=== PATIENT | female | born 1990 | race Caucasian/White ===

== ENCOUNTER 2021-11-03 15:51 | Emergency (ER) | payer SELFPAY ==
[2021-11-03 16:02] VITALS: BP 151/90; PULSE 124; RESP 12; TEMP 39.2; O2SAT 98; BMI 22.4
--- NOTE | 2021-11-03 16:17 | ECG_ITS ---
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 Measurements Intervals [place] Rate: 116 P: 61 [place]: 122 QRS: 69 QRSD: 90 T: 52 QT: 299 QTc: 417 Interpretive Statements SINUS TACHYCARDIA NONSPECIFIC T-WAVE ABNORMALITY ABNORMAL RHYTHM ECG No previous ECG available for comparison Electronically Signed On 11-04-2021 5:47:31 CDT by Jeanna De La Garza M.D. [id number]
--- NOTE | 2021-11-03 16:17 | XRR_ITS ---
PROCEDURE INFORMATION: Exam: XR Chest Exam date and time: 11/03/2021 4:28 PM Age: 30 years old Clinical indication: Fever TECHNIQUE: Imaging protocol: Radiologic exam of the chest. Views: 1 view. COMPARISON: No relevant prior studies available. FINDINGS: Lungs: Unremarkable. No consolidation. Pleural spaces: Unremarkable. No pleural effusion. No pneumothorax. Heart/Mediastinum: Unremarkable. No cardiomegaly. Bones/joints: Unremarkable. XR/XR chest 1V portable [id number] IMPRESSION: No acute findings.
--- NOTE | 2021-11-03 16:25 | W.ED.FEVER ---
Documented by User: MATTHEW Cardona 11/04/21 14:49 HPI - Fever General: Chief Complaint: Fever Stated Complaint: 103F fever/lethargic Time Seen by Provider: 11/03/21 16:11 History of Present Illness: Patient is a 30-year-old female comes to the ED with fever, nausea and diarrhea. Symptoms started approximately 2 days ago. She took some Tylenol early this morning. She denies any vomiting and has been trying to drink plenty of fluids to stay hydrated. She has only had 3 episodes of diarrhea for the past 2 days. Denies any abdominal pain, chest pain or shortness of breath. She does endorse having some right rib/lateral chest wall pain that started over a week ago after she was lifting a pallet at work. Associated symptoms: Reports diarrhea and nausea; Deny abdominal pain, flank pain, chills, chest pain, dysuria, headache(s), nasal congestion or vomiting Review of Systems Const: Reports: fever(s); Denies: chills or fatigue Eyes: Denies: change in vision or eye discomfort ENMT: Denies: throat pain, odynophagia, nasal discharge or nasal congestion Card: Denies: chest pain, palpitations, edema, swelling of feet/ankles, dyspnea on exertion or orthopnea Resp: Denies: dyspnea, productive cough or non-productive cough GI: Reports: nausea and diarrhea; Denies: abdominal pain, vomiting, constipation or hematochezia : Denies: flank pain, dysuria or hematuria Musc: Denies: neck pain, back pain or extremity swelling Skin/Breast: Denies: rash or new lesions Neuro: Denies: headache(s), numbness in extremities or weakness in extremities PFS ED PFSH: Medical History (Updated 11/04/21 @ 14:48 by MATTHEW Cardona) No pertinent family history Surgical History (Updated 11/04/21 @ 14:48 by MATTHEW Cardona) No pertinent past surgical history Physical Exam Const: COMMON NORMALS: patient oriented x3 and alert GENERAL APPEARANCE: cooperative HENMT: COMMON NORMALS: normocephalic HEAD & SCALP: normocephalic MOUTH: Normal oral and palatal mucosa present THROAT: uvula midline and abnormal tonsil bilateral erythema and hypertrophy 2+ Eye: COMMON NORMALS: Equal, round and reactive pupils present and conjunctivae normal CONJUNCTIVA: Yes conjunctivae normal PUPIL: Yes Equal, round and reactive pupils present Neck/C-Spine: COMMON NORMALS: supple GENERAL: Yes normal visual inspection Resp: COMMON NORMALS: normal respiratory effort, No retractions, No use of accessory muscles and clear to auscultation bilaterally AUSCULTATION: clear to auscultation bilaterally Cardio: COMMON NORMALS: regular rhythm, S1 normal heart sound present, S2 normal heart sound present, No gallops present (Cardio), No clicks present (Cardio), No murmurs present (Cardio) and Peripheral pulses 2+ throughout RATE: tachycardic RHYTHM: regular rhythm HEART SOUNDS: S1 normal heart sound present and S2 normal heart sound present PERIPHERAL PULSES: Peripheral pulses 2+ throughout GI: COMMON NORMALS: Normal to inspection, nondistended, normoactive bowel sounds present, Soft to palpation, non-tender and no masses PALPATION: Yes Soft to palpation : COMMON NORMALS: Yes no CVA tenderness BLADDER/KIDNEY EXAM: Yes no CVA tenderness Back/Pelvis: COMMON NORMALS: no CVA tenderness Extremity: COMMON NORMALS: normal to inspection Neuro: COMMON NORMALS: patient oriented x3 and moves all extremities SENSORIUM/ORIENTATION: Yes alert Skin: GENERAL SKIN EXAM: dry skin Course Vital Signs: Vital signs: Vital Signs Temperature 102.6 F H 11/03/21 16:02 Pulse Rate 112 H 11/03/21 18:35 Respiratory Rate 15 11/03/21 18:35 Blood Pressure 144/79 11/03/21 18:35 Pulse Oximetry 96 11/03/21 18:35 MDM - Fever Lab Data I reviewed the patient's lab results. : 11/03/21 16:38 11/03/21 16:38 Radiology Impressions Chest X-Ray 11/03/21 16:17 IMPRESSION: No acute findings. Laboratory Results WBC 11.9 10^3/uL (4.0-10.0) H 11/03/21 16:38 RBC 4.17 10^6/uL (4.1-5.3) 11/03/21 16:38 Hgb 12.2 g/dL (11.5-15.3) 11/03/21 16:38 Hct 36.8 % (37.0-47.0) L 11/03/21 16:38 MCV 88.2 fl (81-99) 11/03/21 16:38 MCH 29.3 pg (28.0-34.0) 11/03/21 16:38 MCHC 33.2 g/dL (30.0-36.0) 11/03/21 16:38 RDW 12.1 % (12.1-15.1) 11/03/21 16:38 Plt Count 282 10^3/cmm (130-400) 11/03/21 16:38 MPV 11.0 fL (7.4-10.4) H 11/03/21 16:38 Neut % (Auto) 84.2 % 11/03/21 16:38 Lymph % (Auto) 8.5 % 11/03/21 16:38 [place] % (Auto) 5.9 % 11/03/21 16:38 Eos % (Auto) 0.8 % 11/03/21 16:38 Baso % (Auto) 0.3 % 11/03/21 16:38 Neut # (Auto) 10.02 10^3/uL (1.8-7.7) H 11/03/21 16:38 Lymph # (Auto) 1.0 10^3/uL (0.8-4.8) 11/03/21 16:38 [place] # (Auto) 0.7 10^3/uL (0.2-0.9) 11/03/21 16:38 Eos # (Auto) 0.1 10^3/uL (0.0-0.8) 11/03/21 16:38 Baso # (Auto) 0.0 10^3/uL (0.0-0.1) 11/03/21 16:38 Nucleated RBC % (auto) 0 % 11/03/21 16:38 Nucleated RBCs # 0.0 /100WBC 11/03/21 16:38 Sodium 135 mmol/L (136-145) L 11/03/21 16:38 Potassium 3.8 mmol/L (3.5-5.1) 11/03/21 16:38 Chloride 96 mmol/L (98-107) L 11/03/21 16:38 Carbon Dioxide 26 mmol/L (22-29) 11/03/21 16:38 Anion Gap 16.8 (5-19) 11/03/21 16:38 BUN 15 mg/dL (6-20) 11/03/21 16:38 Creatinine 0.9 mg/dL (0.5-0.9) 11/03/21 16:38 GFR Calculation 73.5 mL/min (90-130) L 11/03/21 16:38 Glucose 94 mg/dL (65-115) 11/03/21 16:38 Calculated Osmolality 281 mOsm/kg (285-295) L 11/03/21 16:38 Calcium 9.0 mg/dL (8.5-10.5) 11/03/21 16:38 Total Bilirubin 0.3 mg/dL (0.15-1.2) 11/03/21 16:38 AST 14 U/L (0-32) 11/03/21 16:38 ALT 9 U/L (0-33) 11/03/21 16:38 Alkaline Phosphatase 61 IU/L (35-105) 11/03/21 16:38 Total Protein 7.8 g/dL (6.6-8.7) 11/03/21 16:38 Albumin 3.9 g/dL (3.5-5.2) 11/03/21 16:38 Globulin 3.9 g/dL (1.3-4.6) 11/03/21 16:38 HCG, Qual Negative (Negative) 11/03/21 16:38 Urine Color Yellow (Yellow) 11/03/21 17:40 Urine Appearance Clear (CLEAR) 11/03/21 17:40 Urine pH 7 (5-7) 11/03/21 17:40 Ur Specific [place] 1.005 (1.005-1.030) 11/03/21 17:40 Urine Protein Neg (Negative) 11/03/21 17:40 Urine Glucose (UA) Norm (Normal) 11/03/21 17:40 Urine Ketones 2+ (Negative) H 11/03/21 17:40 Urine Blood Neg (Negative) 11/03/21 17:40 Urine Nitrate Negative (Negative) 11/03/21 17:40 Urine Bilirubin Neg (Negative) 11/03/21 17:40 Prot Sulfosalicylic Acd Negative (Negative) 11/03/21 17:40 Urine Urobilinogen Norm mg/dL (Negative) 11/03/21 17:40 Ur Leukocyte Esterase 1+ (Negative) H 11/03/21 17:40 Urine RBC 0-4 /hpf (0-2) H 11/03/21 17:40 Urine WBC None /hpf (0-5) 11/03/21 17:40 Ur Squamous Epith Cells 0-4 /hpf (0-5) H 11/03/21 17:40 Amorphous Sediment Not Reportable 11/03/21 17:40 Urine Bacteria None /hpf (NONE) 11/03/21 17:40 Nasal Influ A H1 2009 PCR Not detected (NOT DETECT) 11/03/21 16:38 Coronavirus 229E (PCR) Not detected (NOT DETECT) 11/03/21 16:38 Influenza A (H1) PCR Not detected (NOT DETECT) 11/03/21 16:38 Influenza A (H3) PCR Not detected (NOT DETECT) 11/03/21 16:38 Influenza Type A Ag Cancelled 11/03/21 16:38 Influenza Type A (PCR) Not detected (NOT DETECT) 11/03/21 16:38 Influenza Type B Ag Cancelled 11/03/21 16:38 Influenza Type B (PCR) Not detected (NOT DETECT) 11/03/21 16:38 SARS-CoV-2 (PCR) Not detected (NOT DETECT) 11/03/21 16:38 Group A Strep Rapid Negative (Negative) 11/03/21 17:44 EKG Data EKG 1: EKG interpretation date: 11/03/21 Interpretation: Sinus tachycardia, no ST segment elevation or depression seen. Discharge Plan Discharge Patient Disposition: Home Clinical Impression: Viral infection, Dehydration Condition: Stable Prescriptions: No Action acetaminophen 325 mg Capsule 325 mg PO QID PRN (Reason: Pain) 0RF Discharge Orders: Discharge ED (Routine); Ordered 11/03/21 Ordered By: Jam Avalos Discharge Diet: Usual diet Discharge Activity: Increase activity as tolerated Patient Instructions: Viral Syndrome (ED) Activity Restrictions/Additional Instructions: Continue drinking plenty of fluids. Add an electrolyte solution at least 8 ounces 3 times a day until diarrhea stops. Use acetaminophen and ibuprofen for pain and fever. Follow-up with primary care as needed. Return to ER for worsening symptoms such as uncontrolled pain, blood in vomit or stool, or inability to hold any fluids down. Call back to the ER in 2 to 3 hours for review of influenza and COVID-19 test result. Stand Alone Forms: Work/School Release Sign Out Sign Out Data: Patient Sign Out occurred on 11/03/21 at 17:27. Patient's care was discussed, and care was transferred from to Jam Avalos. 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 for Chg Fwd Exam Comprehensive Documented by User: BARRINGTON Lovett 11/03/21 18:29 HPI - Fever General: Chief Complaint: Fever Stated Complaint: 89F fever/lethargic Time Seen by Provider: 11/03/21 16:11 [facility] ED PFSH: Medical History (Updated 11/04/21 @ 14:48 by MATTHEW Cardona) No pertinent family history Surgical History (Updated 11/04/21 @ 14:48 by MATTHEW Cardona) No pertinent past surgical history Course Vital Signs: Vital signs: Vital Signs Temperature 102.6 F H 11/03/21 16:02 Pulse Rate 112 H 11/03/21 18:35 Respiratory Rate 15 11/03/21 18:35 Blood Pressure 144/79 11/03/21 18:35 Pulse Oximetry 96 11/03/21 18:35 MDM - Fever Medical Decision Making 30-year-old female comes in today for complaints of fever, body aches, and diarrhea for the last 2 days. On exam patient had elevated pulse at 124, temperature of 102.6. Abdomen is soft with no tenderness. No CVA tenderness was noted. Lungs are clear to auscultation. Differential diagnosis includes pneumonia, gastroenteritis, viral infection, dehydration. CBC had a white count 11.9, sodium was 135 on CMP normal liver enzymes. Urinalysis was unremarkable. Chest x-ray showed no pneumonia. Outstanding labs remained with COVID and influenza. Patient was given Tylenol and IV fluids. Patient had improvement in symptoms. Reviewed exam with patient with recommendations for continuing fluids using acetaminophen and ibuprofen for viral infection supportive care. Patient was also recommended to use some Gatorade while she has diarrhea stools. Patient reported understanding of care plan need for follow-up or return to the ER. Lab Data : 11/03/21 16:38 11/03/21 16:38 Radiology Impressions Chest X-Ray 11/03/21 16:17 IMPRESSION: No acute findings. Laboratory Results WBC 11.9 10^3/uL (4.0-10.0) H 11/03/21 16:38 RBC 4.17 10^6/uL (4.1-5.3) 11/03/21 16:38 Hgb 12.2 g/dL (11.5-15.3) 11/03/21 16:38 Hct 36.8 % (37.0-47.0) L 11/03/21 16:38 MCV 88.2 fl (81-99) 11/03/21 16:38 MCH 29.3 pg (28.0-34.0) 11/03/21 16:38 MCHC 33.2 g/dL (30.0-36.0) 11/03/21 16:38 RDW 12.1 % (12.1-15.1) 11/03/21 16:38 Plt Count 282 10^3/cmm (130-400) 11/03/21 16:38 MPV 11.0 fL (7.4-10.4) H 11/03/21 16:38 Neut % (Auto) 84.2 % 11/03/21 16:38 Lymph % (Auto) 8.5 % 11/03/21 16:38 [place] % (Auto) 5.9 % 11/03/21 16:38 Eos % (Auto) 0.8 % 11/03/21 16:38 Baso % (Auto) 0.3 % 11/03/21 16:38 Neut # (Auto) 10.02 10^3/uL (1.8-7.7) H 11/03/21 16:38 Lymph # (Auto) 1.0 10^3/uL (0.8-4.8) 11/03/21 16:38 [place] # (Auto) 0.7 10^3/uL (0.2-0.9) 11/03/21 16:38 Eos # (Auto) 0.1 10^3/uL (0.0-0.8) 11/03/21 16:38 Baso # (Auto) 0.0 10^3/uL (0.0-0.1) 11/03/21 16:38 Nucleated RBC % (auto) 0 % 11/03/21 16:38 Nucleated RBCs # 0.0 /100WBC 11/03/21 16:38 Sodium 135 mmol/L (136-145) L 11/03/21 16:38 Potassium 3.8 mmol/L (3.5-5.1) 11/03/21 16:38 Chloride 96 mmol/L (98-107) L 11/03/21 16:38 Carbon Dioxide 26 mmol/L (22-29) 11/03/21 16:38 Anion Gap 16.8 (5-19) 11/03/21 16:38 BUN 15 mg/dL (6-20) 11/03/21 16:38 Creatinine 0.9 mg/dL (0.5-0.9) 11/03/21 16:38 GFR Calculation 73.5 mL/min (90-130) L 11/03/21 16:38 Glucose 94 mg/dL (65-115) 11/03/21 16:38 Calculated Osmolality 281 mOsm/kg (285-295) L 11/03/21 16:38 Calcium 9.0 mg/dL (8.5-10.5) 11/03/21 16:38 Total Bilirubin 0.3 mg/dL (0.15-1.2) 11/03/21 16:38 AST 14 U/L (0-32) 11/03/21 16:38 ALT 9 U/L (0-33) 11/03/21 16:38 Alkaline Phosphatase 61 IU/L (35-105) 11/03/21 16:38 Total Protein 7.8 g/dL (6.6-8.7) 11/03/21 16:38 Albumin 3.9 g/dL (3.5-5.2) 11/03/21 16:38 Globulin 3.9 g/dL (1.3-4.6) 11/03/21 16:38 HCG, Qual Negative (Negative) 11/03/21 16:38 Urine Color Yellow (Yellow) 11/03/21 17:40 Urine Appearance Clear (CLEAR) 11/03/21 17:40 Urine pH 7 (5-7) 11/03/21 17:40 Ur Specific [place] 1.005 (1.005-1.030) 11/03/21 17:40 Urine Protein Neg (Negative) 11/03/21 17:40 Urine Glucose (UA) Norm (Normal) 11/03/21 17:40 Urine Ketones 2+ (Negative) H 11/03/21 17:40 Urine Blood Neg (Negative) 11/03/21 17:40 Urine Nitrate Negative (Negative) 11/03/21 17:40 Urine Bilirubin Neg (Negative) 11/03/21 17:40 Prot Sulfosalicylic Acd Negative (Negative) 11/03/21 17:40 Urine Urobilinogen Norm mg/dL (Negative) 11/03/21 17:40 Ur Leukocyte Esterase 1+ (Negative) H 11/03/21 17:40 Urine RBC 0-4 /hpf (0-2) H 11/03/21 17:40 Urine WBC None /hpf (0-5) 11/03/21 17:40 Ur Squamous Epith Cells 0-4 /hpf (0-5) H 11/03/21 17:40 Amorphous Sediment Not Reportable 11/03/21 17:40 Urine Bacteria None /hpf (NONE) 11/03/21 17:40 Nasal Influ A H1 2009 PCR Not detected (NOT DETECT) 11/03/21 16:38 Coronavirus 229E (PCR) Not detected (NOT DETECT) 11/03/21 16:38 Influenza A (H1) PCR Not detected (NOT DETECT) 11/03/21 16:38 Influenza A (H3) PCR Not detected (NOT DETECT) 11/03/21 16:38 Influenza Type A Ag Cancelled 11/03/21 16:38 Influenza Type A (PCR) Not detected (NOT DETECT) 11/03/21 16:38 Influenza Type B Ag Cancelled 11/03/21 16:38 Influenza Type B (PCR) Not detected (NOT DETECT) 11/03/21 16:38 SARS-CoV-2 (PCR) Not detected (NOT DETECT) 11/03/21 16:38 Group A Strep Rapid Negative (Negative) 11/03/21 17:44 Discharge Plan Discharge Patient Disposition: Home Clinical Impression: Viral infection, Dehydration Condition: Stable Prescriptions: No Action acetaminophen 325 mg Capsule 325 mg PO QID PRN (Reason: Pain) 0RF Discharge Orders: Discharge ED (Routine); Ordered 11/03/21 Ordered By: Jam Avalos Discharge Diet: Usual diet Discharge Activity: Increase activity as tolerated Patient Instructions: Viral Syndrome (ED) Activity Restrictions/Additional Instructions: Continue drinking plenty of fluids. Add an electrolyte solution at least 8 ounces 3 times a day until diarrhea stops. Use acetaminophen and ibuprofen for pain and fever. Follow-up with primary care as needed. Return to ER for worsening symptoms such as uncontrolled pain, blood in vomit or stool, or inability to hold any fluids down. Call back to the ER in 2 to 3 hours for review of influenza and COVID-19 test result. Stand Alone Forms: Work/School Release Sign Out Sign Out Data: Patient Sign Out occurred on 11/03/21 at 17:27. Patient's care was discussed, and care was transferred from to Jam Avalos. 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
[2021-11-03] MEDS: sodium chloride 0.9% 1,000 ML 999 ML IV (16:45)
[2021-11-03 16:49] LABS: Basophils % 0.3 %; Eosinophils # 0.1 10^3/uL (0.0-0.8); Eosinophils % 0.8 %; Hematocrit 36.8 % (37.0-47.0); Hemoglobin 12.2 g/dL (11.5-15.3); Lymphocytes % 8.5 %; Mean Corpuscular HGB Conc 33.2 g/dL (30.0-36.0); Mean Corpuscular Hemoglobin 29.3 pg (28.0-34.0); Mean Corpuscular Volume 88.2 fl (81-99); Monocytes # 0.7 10^3/uL (0.2-0.9); Monocytes % 5.9 %; Neutrophils # 10.02 10^3/uL (1.8-7.7); Neutrophils % 84.2 %; Nucleated Red Blood Cells % 0 %; Platelet Count 282 10^3/cmm (130-400); Red Blood Count 4.17 10^6/uL (4.1-5.3); Red Cell Distribution Width 12.1 % (12.1-15.1); White Blood Count 11.9 10^3/uL (4.0-10.0)
[2021-11-03] MEDS: acetaminophen 500 mg Tablet 1000 MG PO (16:56)
[2021-11-03 17:00] LABS: HCG, Serum Qual Negative (Negative)
[2021-11-03 17:05] LABS: Alanine Aminotransferase 9 U/L (0-33); Albumin Level 3.9 g/dL (3.5-5.2); Alkaline Phosphatase 61 IU/L (35-105); Anion Gap 16.8 (5-19); Aspartate Amino Transferase 14 U/L (0-32); Blood Urea Nitrogen 15 mg/dL (6-20); Carbon Dioxide 26 mmol/L (22-29); Chloride 96 mmol/L (98-107); Globulin 3.9 g/dL (1.3-4.6); Glomerular Filtration Rate 73.5 mL/min (90-130); Glucose 94 mg/dL (65-115); Osmolality Calculated 281 mOsm/kg (285-295); Potassium 3.8 mmol/L (3.5-5.1); Sodium 135 mmol/L (136-145); Total Bilirubin 0.3 mg/dL (0.15-1.2); Total Protein 7.8 g/dL (6.6-8.7)
[2021-11-03 17:59] LABS: Rapid Strep A Test Negative (Negative)
[2021-11-03 18:11] LABS: Urine Appearance Clear (CLEAR); Urine Color Yellow (Yellow); pH Urine 7 (5-7)
[2021-11-03 18:12] LABS: Add Urine Microscopic? YES; Bilirubin Urine Neg (Negative); Blood Urine Neg (Negative); Glucose Urine UA Norm (Normal); Ketones Urine 2+ (Negative); Leukocyte Esterase Urine 1+ (Negative); Nitrate Urine Negative (Negative); Protein Urine Neg (Negative); Specific Gravity, Urine 1.005 (1.005-1.030); Sulfosalicylic Acid Urine Negative (Negative); Urobilinogen Urine Norm (Negative)
[2021-11-03 18:14] LABS: RBC Urine 0-4 /hpf (0-2)
[2021-11-03 18:15] LABS: Add Urine Culture? No; Squamous Epithelial Cell Urine 0-4 /hpf (0-5)
[2021-11-03 18:35] VITALS: BP 144/79; PULSE 112; RESP 15; O2SAT 96
[2021-11-04 10:40] LABS: Adenovirus Not Detected (NOT DETECT); Chlamydia Pneumoniae Not Detected (NOT DETECT); Coronavirus 229E,HKU1,NL63,OC4 Not Detected (NOT DETECT); Human Metapneumovirus Not Detected (NOT DETECT); Human Rhinovirus/Enterovirus Not Detected (NOT DETECT); Influenza A Not Detected (NOT DETECT); Influenza A H1 Not Detected (NOT DETECT); Influenza A H1-2009 Not Detected (NOT DETECT); Influenza A H3 Not Detected (NOT DETECT); Influenza B Not Detected (NOT DETECT); Mycoplasma Pneumoniae Not Detected (NOT DETECT); Parainfluenza Virus Type 1 Not Detected (NOT DETECT); Parainfluenza Virus Type 2 Not Detected (NOT DETECT); Parainfluenza Virus Type 3 Not Detected (NOT DETECT); Parainfluenza Virus Type 4 Not Detected (NOT DETECT); Respiratory Syncytial Virus A Not Detected (NOT DETECT); Respiratory Syncytial Virus B Not Detected (NOT DETECT); SARS-COV-2 Not Detected (NOT DETECT)
[2021-11-04 11:03] LABS: Results from Genmark
== END 2021-11-03 18:38 | disposition home or self-care (01) ==
PROVIDERS: Physician Assistant; Emergency Provider Nurse Practitioner Family
DX: B34.9 Viral infection, unspecified (principal); E86.0 Dehydration
CPT/HCPCS: 71045; 80053; 81001; 84703; 85025; 87081; 87631; 87635; 87880; 93005; 96361; 96374; 99284; J7030